=== PATIENT | female | born 1950 | race Caucasian/White ===

== ENCOUNTER 2019-06-24 13:49 | Outpatient (CLI) | payer MEDICARE, SELFPAY ==
--- NOTE | 2019-06-24 13:54 | MM_ITS ---
WS: [id number] Bilateral screening digital mammogram, 06/24/2019 Clinical Data: SCREENING Comparison: 03/19/2018, 02/28/2017, 09/15/2014, 09/10/2013, 06/08/2011, 04/28/2009, 02/27/2007. Findings: The breast parenchymal pattern shows extreme density. No spiculated masses or clustered calcification s are seen. There are no secondary signs of carcinoma. There are small bilateral benign calcification s unchanged. MM/[id number] Impression: 1. Negative bilateral mammogram unchanged. 2. Recommend annual screening mammograms. BIRADS: 1-Negative FOLLOW UP: 1 Year Follow-up The CAD checker and packer was used.
== END 2019-06-24 13:50 | disposition home or self-care (01) ==
LOC: RADSHAW 13:49
PROVIDERS: Family Provider Family Medicine; PCP Family Medicine; Visit Provider Family Medicine
DX: Z12.31 Encounter for screening mammogram for malignant neoplasm of breast (principal)
CPT/HCPCS: 77067

== ENCOUNTER 2020-09-16 13:15 | Outpatient (CLI) | payer MEDICARE, SELFPAY ==
--- NOTE | 2020-09-16 13:24 | XR_ITS ---
WS: [id number] SCREENING DEXA SCAN [employer] CLINICAL INFORMATION: ASYMPTOMATIC MENOPAUSAL STATE COMPARISON: None. FINDINGS: The L1-L4 bone mineral density measures 1.407 g/cm2. This corresponds to a T score score of 1.9 and Z score of 3.4. Left femoral neck bone mineral density measures 0.987 g/cm2. This corresponds to a T score of -0.2 an d Z score of 1.2. Right femoral neck bone mineral density measures 1.024 g/cm2. This corresponds to a T score 0.1of and Z score of 1.5. Mean femoral neck bone mineral density measures 1.005 g/cm2. This corresponds to a T score of 0.0 and Z score of 1.3. XR/XR DEXA axial skeleton* [id number] IMPRESSION: Normal bone mineralization. Patient's FRAX calculated 10 year probability for major osteoporotic fracture i s 10.5 % and osteoporotic hip fracture is 1.4%.
--- NOTE | 2020-09-16 13:49 | MM_ITS ---
WS: [id number] BILATERAL SCREENING DIGITAL MAMMOGRAM WITH CAD HISTORY: SCREENING COMPARISON: 06/24/2019 and 03/19/2018 Bilateral CC and MLO views submitted. Computer aided detection analyzed. Breast composition: The breasts are heterogeneously dense, which may obscure small masses. No suspici ous masses, microcalcifications or architectural distortion. Benign calcifications in each breast. MM/[place] [id number] IMPRESSION: BI-RADS: 2-Benign FOLLOW UP: 1 Year Follow-up
== END 2020-09-16 13:16 | disposition home or self-care (01) ==
PROVIDERS: PCP Family Medicine; Visit Provider Family Medicine
DX: Z12.31 Encounter for screening mammogram for malignant neoplasm of breast (principal); Z78.0 Asymptomatic menopausal state
CPT/HCPCS: 77067; 77080

== ENCOUNTER 2020-10-15 09:20 | Day surgery (SDC) | payer MEDICARE, SELFPAY ==
[2020-10-13 10:28] VITALS: BMI 28.0
[2020-10-15 09:55] VITALS: BP 145/99; PULSE 66; RESP 18; TEMP 36.4; O2SAT 96
[2020-10-15] MEDS: sodium chloride 0.9% 1,000 ML 30 ML IV (10:07)
--- NOTE | 2020-10-15 10:25 | W.PM.OPSFHP ---
Same Day Surgery H&P Indication for Procedure/HPI DATE OF PROCEDURE: October 15, 2020 CHIEF COMPLAINT/INDICATIONFOR SURGICAL PROCEDURE: colon polyps PREOP DIAGNOSIS: screening colonoscopy PLANNED PROCEDRUE: Operation Date: 10/15/20 10:30 Proposed Procedures p Colonoscopy 78281 Z86.010(Not Applicable) - Anatoliy Yanez MD Medications/Allergies* Home Medications Medication Instructions Recorded Confirmed Type atorvastatin 20 mg tablet 20 mg PO DAILY 09/08/20 10/13/20 History losartan 25 mg tablet 50 mg PO DAILY 09/08/20 10/13/20 History propranolol 40 mg tablet 20 mg PO DAILY 09/08/20 10/13/20 History Allergies/Adverse Reactions Allergy/AdvReac Type Severity Reaction Status Date / Time Sulfa (Sulfonamide Allergy Mild headache Verified 09/08/20 08:18 Antibiotics) Current Medications: Generic Name Dose Route Start Last Admin Trade Name Freq PRN Reason Stop Dose Admin Sodium Chloride 1,000 mls @ 30 mls/hr 10/15/20 09:45 10/15/20 10:07 Sodium Chloride 0.9% IV 10/16/20 09:44 30 mls/hr .Q24H NIKA Administration Pertinent History/Comorbid Conditions* Medical History (Updated 09/08/20 @ 08:49 by Anatoliy Yanez MD) History of colon polyps Hx of ectopic Hyperlipidemia Hypertension Surgical History (Updated 09/08/20 @ 08:27 by Anatoliy Yanez MD) History of colonoscopy with polypectomy 2014 History of hysterectomy 1990 Family History (Updated 09/08/20 @ 08:23 by Tyesha Loza) Diabetes Mother Denies family history of CAD (coronary artery disease) Cancer Hypertension Stroke Social History Smoking and tobacco status: never smoked Alcohol intake: current Alcohol intake frequency: 0-2 Drinks per Day Lives independently: Yes Household members: other Pertinent Exam Findings alert, oriented x 3 and regular rate & rhythm Recommendations Surgery/Procedure today Coding Level of Care Code Acute Global Marketing Specialist for Wilbert White
[2020-10-15 11:22] VITALS: BP 145/93; PULSE 63; RESP 16; TEMP 36.1; O2SAT 99
[2020-10-15 11:36] VITALS: BP 145/99; PULSE 52; RESP 16; O2SAT 100
--- NOTE | 2020-10-15 12:05 | ANE.PACU2 ---
Inpatient post-anesthesia follow up: Airway intact: Yes Vital signs: Temperature 97 F Pulse Rate 52 Respiratory Rate 16 Blood Pressure 145/99 Pulse Oximetry 100 Oxygen Delivery Me thod Room Air Oxygen Flow Rate 4 Fraction of Inspir ed Oxygen Hydration adequate: Yes Nausea and vomiting: No Pain level: 1 Mental status: Baseline
== END 2020-10-15 11:55 | disposition home or self-care (01) ==
PROVIDERS: PCP Family Medicine; Visit Provider Surgery
PROC: 0DJD8ZZ Inspection of Lower Intestinal Tract, Via Natural or Artificial Opening Endoscopic (ICD-10-PCS; CPT 45378; principal; 2020-10-15 10:30)
DX: Z12.11 Encounter for screening for malignant neoplasm of colon (principal); Z86.010 Personal history of colon polyps; K57.30 Diverticulosis of large intestine without perforation or abscess without bleeding; K64.8 Other hemorrhoids; D12.2 Benign neoplasm of ascending colon; D12.0 Benign neoplasm of cecum; D12.4 Benign neoplasm of descending colon; E78.5 Hyperlipidemia, unspecified; I10 Essential (primary) hypertension; Z83.3 Family history of diabetes mellitus
CPT/HCPCS: 45380; 88305; 96360; 96361; J2704; J7030

== ENCOUNTER 2021-09-29 14:41 | Outpatient (CLI) | payer MEDICARE, SELFPAY ==
--- NOTE | 2021-09-29 15:03 | MM_ITS ---
WS: [id number] BILATERAL 3D TOMOSYNTHESIS DIGITAL SCREENING MAMMOGRAPHY WITH CAD CLINICAL INFORMATION: SCREENING HISTORY: Screening mammogram. No current complaints. COMPARISON: September 16, 2020 TECHNIQUE: Bilateral CC and MLO views. FINDINGS: The breasts are composed of heterogeneous fibroglandular density tissue, which can limit the detectio n of small underlying mass lesions. Punctate and lucent centered calcifications. No suspicious mass, asymmetry, calcifications, or architectural distortion. No evidence of malignancy. MM/[place] [id number] IMPRESSION: BI-RADS: 2-Benign FOLLOW UP: 1 Year Follow-up Recommend return to annual screening mammography.
== END 2021-09-29 14:42 | disposition home or self-care (01) ==
LOC: RAD 14:46
PROVIDERS: PCP Family Medicine; Visit Provider Family Medicine
DX: Z13.9 Encounter for screening, unspecified (principal)
CPT/HCPCS: 77063; 77067

== ENCOUNTER 2021-11-10 09:23 | Outpatient (CLI) | payer MEDICARE, SELFPAY ==
--- NOTE | 2021-11-10 09:38 | XR_ITS ---
WS: [id number] Lumbar spine, 3 views, 11/10/2021 Clinical Data: SCIATICA Comparison: None. Findings: No compression fractures or subluxation is seen. There is degenerative disc narrowing from L1-L2 thro ugh L5-S1. There are anterior osteophytes from T12 through L5. There is a dextroscoliosis. The transv erse processes and SI joints are normal. There is calcification of the wall of the abdominal aorta but no aneurysm. XR/XR lumbar spine 2-3V* [id number] Impression: 1. Degenerative disc narrowing at L1-L2 through L5-S1. 2. Anterior osteoarthritic spurring T12-L5. 3. Dextroscoliosis.
== END 2021-11-10 09:24 | disposition home or self-care (01) ==
LOC: RAD 09:26
PROVIDERS: PCP Family Medicine; Visit Provider Family Medicine
DX: M54.30 Sciatica, unspecified side (principal); M41.86 Other forms of scoliosis, lumbar region
CPT/HCPCS: 72100

== ENCOUNTER 2022-04-04 09:53 | Outpatient (CLI) | payer MEDICARE, SELFPAY ==
--- NOTE | 2022-04-04 10:32 | CT_ITS ---
WS: [id number] CT NECK WITH CONTRAST HISTORY: LOCALIZED SWELLING , MASS AND LUMP TECHNIQUE: Contiguous 5 mm axial images are performed through the neck with intravenous contrast. Sag ittal and coronal reformats are also submitted. All CT scans at [facility] use at least one o f these dose optimization techniques: automated exposure control; mA and/or kV adjustment per patient size (includes targeted exams where dose is matched to clinical indication); or iterative reconstruc tion. CONTRAST: CONTRAST: Omnipaque 350; 95 mL IV. DLP: 208.44 mGy.cm COMPARISON: None available. Palpable marker is placed on the midline of the lower neck at the level of the thyroid. No mass ident ified. There is no lymph node. Mildly prominent soft tissue. Nasopharynx, oropharynx, hypopharynx and larynx are unremarkable. No soft tissue masses or abnormal e nhancement. Torus tubarius and fossa of Rosenmuller and parapharyngeal fat are normal. No significant lymphadenopathy is identified. Multiple small RIGHT thyroid nodules. The largest is 7.8 mm on the RIGHT. Normal parotid glands. Inti mal thickening and calcified plaque in the LEFT carotid bifurcation. No high-grade stenosis. C4 anterolisthesis by 3 mm. Advanced degenerative disc space at C5-6 and C6-7. Visualized portions of the skull base demonstrate no abnormalities. Orbits and globes are within norm al limits. No soft tissue masses. Visualized paranasal sinuses and mastoid air cells are normal. Lung apices are clear. CT/CT neck w con* [id number] IMPRESSION: 1. No mass associated with the marker placed at the palpable abnormality along the midline of the lower neck. Mildly prominent lipomatous type tissue but no well-circumscribed mass. 2. No adenopathy. 3. Subcentimeter thyroid nodules.
[2022-04-04 10:56] LABS: Blood Urea Nitrogen 14 mg/dL (8-23)
[2022-04-04] MEDS: iohexol 350 mg/mL 500 mL Btl (per mL) IV (11:02)
== END 2022-04-04 09:54 | disposition home or self-care (01) ==
PROVIDERS: Radiology Diagnostic Radiology; PCP Family Medicine; Visit Provider Family Medicine
DX: E04.2 Nontoxic multinodular goiter (principal)
CPT/HCPCS: 70491; 82565; 84520; Q9967

== ENCOUNTER 2023-01-04 12:41 | Outpatient (CLI) | payer MEDICARE, SELFPAY ==
--- NOTE | 2023-01-04 12:54 | XR_ITS ---
WS: [id number] DEXA (DUAL ENERGY X-RAY ABSORPTIOMETRY) Bone mineral density was performed using a [employer] machine. HISTORY: OSTEOPOROSIS COMPARISON: 09/16/2020 Lumbar spine BMD (L1-L4): 1.440 g/cm2 T score: 2.2 Z score: 3.6 Total hip BMD: Left: 1.005 g/cm2. T score: 0.0 Z score: 1.4 Right: 1.045 g/cm2. T score: 0.3 Z score: 1.7 10 year probability of a major osteoporotic fracture is 10.2%. Compared to the prior study from 09/16/2020. Lumbar spine bone mineral density has increased by 2.3%. Bilateral hips bone mineral density has increased by 2.0%. IMPRESSION: NORMAL BONE MINERAL DENSITY based upon the WHO classification for females. There has been a slight increase in bone mineral density within both the lumbar spine and the hips.
--- NOTE | 2023-01-04 13:25 | MM_ITS ---
WS: [id number] Bilateral screening 3D tomosynthesis digital mammogram, 01/04/2023 Clinical Data: SCREENING Comparison: 09/30/2019 to 09/16/2020, 06/24/2019, 03/19/2018, 02/28/2017, 09/15/2014, 09/10/2013, 06/08/2011, 04/28/2009, 02/27/2007, 06/05/2006. Findings: The breast parenchymal pattern shows heterogeneous density. No spiculated masses or clustered calcifi cations are seen. There are no secondary signs of carcinoma. There are benign dystrophic calcificatio ns in both breasts. Impression: 1. Negative bilateral mammogram unchanged. 2. Recommend annual screening mammograms. MM/[place] [id number] BIRADS: 1-Negative FOLLOW UP: 1 Year Follow-up The CAD liner checker was used.
== END 2023-01-04 12:42 | disposition home or self-care (01) ==
PROVIDERS: PCP Family Medicine; Visit Provider Family Medicine
DX: Z12.31 Encounter for screening mammogram for malignant neoplasm of breast (principal); M81.0 Age-related osteoporosis without current pathological fracture
CPT/HCPCS: 77063; 77067; 77080

== ENCOUNTER 2024-02-01 10:20 | Outpatient (CLI) | payer MEDICARE, SELFPAY ==
--- NOTE | 2024-02-01 10:20 | MM_ITS ---
WS: [id number] VIEWS: MLO and CC views both breasts. 3D digital tomosynthesis is also included in this exam. Comparison made with prior exam of 06/05/2006, 04/28/2009, 06/08/2011, 09/10/2013, 09/15/2014, 02/28/2017, 1 05/20/2017, 06/24/2019, 09/29/2021, 01/04/2023.. Findings: The breasts are extremely dense, which lowers the sensitivity of mammography. No sign of suspicious mass, tumor calcification or architectural distortion. MM/MM scr [place] tomosynthesis [id number] Impression: BI-RADS: 2 - Benign FOLLOW-UP: 1 Year Follow-up This mammogram was also analyzed by the Computer Aided Detection System R2 Imag e Rate Reviewer.
== END 2024-02-01 10:21 | disposition home or self-care (01) ==
LOC: MOBLMAM 10:22
PROVIDERS: PCP Family Medicine; Visit Provider Family Medicine
DX: Z12.31 Encounter for screening mammogram for malignant neoplasm of breast (principal); R92.333 Mammographic heterogeneous density, bilateral breasts
CPT/HCPCS: 77063; 77067

== ENCOUNTER 2025-02-27 13:56 | Outpatient (CLI) | payer MEDICARE, SELFPAY ==
--- NOTE | 2025-02-27 14:00 | MM_ITS ---
WS: [id number] BILATERAL SCREENING DIGITAL TOMOSYNTHESIS MAMMOGRAM WITH CAD HISTORY: SCREENING COMPARISON: 02/01/2024, 09/29/2021 and 01/04/2023 Bilateral CC and MLO views with tomosynthesis and synthetic mammography submitted. Computer aided detection analyzed. Breast composition: The breasts are extremely dense, which lowers the sensitivity of mammography. No suspicious masses, microcalcifications or architectural distortion. Benign calcifications in each breast. MM/MM [facility] tomosynthesis [id number] IMPRESSION: BI-RADS: 2 - Benign FOLLOW UP: 1 Year Follow-up
== END 2025-02-27 13:57 | disposition home or self-care (01) ==
PROVIDERS: PCP Nurse Practitioner Adult Health; Visit Provider Nurse Practitioner Adult Health
DX: Z12.31 Encounter for screening mammogram for malignant neoplasm of breast (principal); R92.343 Mammographic extreme density, bilateral breasts; R92.1 Mammographic calcification found on diagnostic imaging of breast
CPT/HCPCS: 77063; 77067